=== PATIENT | male | born 1985 | race African-American/Black ===

== ENCOUNTER 2018-07-28 13:25 | Emergency (ER) | payer SELFPAY ==
[2018-07-28] MEDS ORDERED: ACETAMINOPHEN 325 MG TABLET PO ONE (13:41)
--- NOTE | 2018-07-28 13:46 | ER Document Report ---
HPI - HPI Pain Level: 4 Notes: Patient is a 32-year-old male who presents to the ED complaining of left knee pain status post injury 2 days ago. Patient states that he had been drinking and fell, but does not know if he twisted his knee or landed on it. Patient states that he has had surgery to his femur, knee, and tib/fib years ago and had equipment placed for fractures. Patient states that weightbearing makes his pain worse. He has not noticed any other swelling or bruising. He has not noticed any obvious giving way of his knee or locking. Denies drug allergies. Denies IV drug use. No other concerns or complaints. Denies any headache, fever, head injury, neck pain, changes in vision/speech/mentation/hearing, URI, sore throat, chest pain, palpitations, syncope, cough, shortness of breath, wheeze, dyspnea, abdominal pain, nausea/vomiting/diarrhea, urinary retention, dysuria, hematuria, back pain, loss of control of bowel or bladder, numbness/ tingling, saddle anesthesia, muscle paralysis/weakness, or rash. - ROS Systems Reviewed and Negative: Yes All other systems reviewed and negative Past Medical History - Social History Smoking Status: Former Smoker Family History: Reviewed & Not Pertinent Psychiatric Medical History: Reports: Hx Depression Past Surgical History: Reports: Hx Orthopedic Surgery - michael left femur, pins left ankle - Immunizations Hx Diphtheria, Pertussis, Tetanus Vaccination: Yes Vertical Provider Document - CONSTITUTIONAL Agree With Documented VS: Yes Notes: PHYSICAL EXAMINATION: GENERAL: Well-appearing, well-nourished and in no acute distress. LUNGS: Breath sounds clear to auscultation bilaterally and equal. No wheezes rales or rhonchi. HEART: Regular rate and rhythm without murmurs, rubs, gallops. Musculoskeletal: Lt knee: No obvious swelling, ecchymosis, effusion, or deformity. Surgical scar noted. FROM to passive/active. + tenderness to the medial knee, possible small effusion. Strength 5+/5. N/V intact distal. Ligamentous grossly stable, limited exam with larger leg size. Dee grossly negative. Patellar grind negative. No calf tenderness. Extremities: No cyanosis, clubbing, or edema b/l. Peripheral pulses 2+. Capillary refill less than 3 seconds. Milana neg b/l. NEUROLOGICAL: Normal speech, limping gait. Normal sensory, motor exams PSYCH: Normal mood, normal affect. SKIN: Warm, Dry, normal turgor, no rashes or lesions noted. - INFECTION CONTROL TRAVEL OUTSIDE OF THE [place] IN LAST 30 DAYS: No Course - Re-evaluation Re-evalutation: 07/28/18 15:45 Patient is an afebrile, well-hydrated, 32-year-old male who presents to the ED with left knee pain. Vitals are acceptable without any significant tachycardia , tachypnea, or hypoxia. PE is otherwise unremarkable for any neurovascular compromise, obvious tendon/ligament rupture, obvious fracture/dislocation, septic joint. X-ray was unremarkable for any acute pathology. Knee immobilizer and crutches were provided today. Tylenol given PO. Patient is nontoxic-appearing. Patient is able to ambulate and weight-bear although he is limping. No other labs or imaging warranted at this time based on H&P. Conservative measures otherwise for symptoms. Recheck with your PCM in 3-5 days. Schedule a consult with orthopedics. Return to the ED with any worsening /concerning symptoms otherwise as reviewed in discharge. Patient is in agreement. Delay in discharge/care due to prolonged >2hr post XR radiology read. Discharge - Discharge Clinical Impression: Left knee pain Qualifiers: Chronicity: acute Qualified Code(s): M25.562 - Pain in left knee Condition: Stable Disposition: HOME, SELF-CARE Additional Instructions: Rest, Ice, Compression, Elevation Use crutches/splint as directed Tylenol/ibuprofen as needed Light stretches daily Strength exercises as able Moist heat and massage may help F/u with your PCP in 3-5 days for a recheck Call orthopedics to schedule an appointment for further evaluation and management Return to the ED with any worsening symptoms and/or development of fever, headache, chest pain, palpitations, syncope, shortness of breath, trouble breathing, abdominal pain, n/v/d, muscle weakness/paralysis, numbness/tingling, swelling, redness, or other worsening symptoms that are concerning to you. Prescriptions: Naproxen 500 mg PO BID PRN #20 tablet PRN Reason: Forms: Elevated Blood Pressure, Return to Work Referrals: [facility] ([facility] [Provider Group] - Follow up in 3-5 days
[2018-07-28 13:53] VITALS: BP 167/103
--- NOTE | 2018-07-28 15:46 | RADIOLOGY REPORT (SQ) ---
EXAM DESCRIPTION: KNEE LEFT 4 VIEW COMPLETED DATE/TIME: 07/28/2018 2:04 pm REASON FOR STUDY: left knee pain s/p injury COMPARISON: None. EXAM PARAMETERS: NUMBER OF VIEWS: Four views. TECHNIQUE: AP, lateral and both oblique radiographic images acquired of the left knee. LIMITATIONS: None. FINDINGS: MINERALIZATION: Normal. BONES: No acute fracture or dislocation. Femoral and tibial intramedullary rods appear stable. . JOINTS: Moderate effusion. SOFT TISSUES: No significant soft tissue swelling. No radiopaque foreign body. OTHER: No other significant finding. IMPRESSION: Moderate effusion.No acute fracture or dislocation. Femoral and tibial intramedullary rods appear stable. TECHNICAL DOCUMENTATION: JOB ID: [id number] [id number] [employer]- All Rights Reserved Reading location - IP/workstation name: [email or web address]
== END 2018-07-28 15:56 | disposition home or self-care (01) ==
LOC: ER 13:25
DX: M25.562 Pain in left knee (principal); Z87.891 Personal history of nicotine dependence
CPT/HCPCS: 99284; 73564; L1830

== ENCOUNTER 2018-10-11 14:39 | Emergency (ER) | payer SELFPAY ==
[2018-10-11] MEDS ORDERED: LIDOCAINE 1% INJ-PF (10 MG/ML) 30 ML SDV INJ ONE (16:04)
--- NOTE | 2018-10-11 16:09 | ER Document Report ---
HPI - HPI Time Seen by Provider: 10/11/18 16:03 Pain Level: 4 Notes: Patient is a 32-year-old male with no significant past medical history who presents to the emergency department complaining of possible abscess to his right lower buttock times 2-3 days. Patient states the noticed hardness to the area with associated pain and purulence. He is still eating and drinking without difficulty otherwise. He is urinating normally and having normal bowel movements. No history of MRSA. Denies IV drug abuse. Denies any headache, fever, neck pain, URI, sore throat, chest pain, palpitations, syncope, cough, shortness of breath, wheeze, dyspnea, abdominal pain, nausea/vomiting/diarrhea, urinary retention, dysuria, hematuria, loss of control of bowel or bladder, numbness/tingling, saddle anesthesia, muscle paralysis/weakness. - ROS Systems Reviewed and Negative: Yes All other systems reviewed and negative Past Medical History - Social History Smoking Status: Never Smoker Family History: Reviewed & Not Pertinent - Past Medical History Cardiac Medical History: Reports: Hx Hypertension Renal/ Medical History: Denies: Hx Peritoneal Dialysis Psychiatric Medical History: Reports: Hx Depression Past Surgical History: Reports: Hx Orthopedic Surgery - michael left femur, pins left ankle - Immunizations Hx Diphtheria, Pertussis, Tetanus Vaccination: Yes Vertical Provider Document - CONSTITUTIONAL Agree With Documented VS: Yes Notes: PHYSICAL EXAMINATION: GENERAL: Well-appearing, well-nourished and in no acute distress. LUNGS: Breath sounds clear to auscultation bilaterally and equal. No wheezes rales or rhonchi. HEART: Regular rate and rhythm without murmurs, rubs, gallops. ABDOMEN: Soft, nontender, nondistended abdomen. No guarding, no rebound. No masses appreciated. Normal bowel sounds present. No CVA tenderness bilaterally. Buttocks: Rt inferior medial buttock has induration, purulence, tenderness, and warmth. No rectal tenderness or pain. The abscess does not involve the anus at this time. Musculoskeletal: FROM to passive/active. Strength 5+/5. Extremities: No cyanosis, clubbing, or edema b/l. Peripheral pulses 2+. Capillary refill less than 3 seconds. NEUROLOGICAL: Normal speech, normal gait. PSYCH: Normal mood, normal affect. SKIN: see above. - INFECTION CONTROL TRAVEL OUTSIDE OF THE [place] IN LAST 30 DAYS: No Course - Re-evaluation Re-evalutation: 10/11/18 17:09 Patient is an afebrile, well-hydrated, 32-year-old male who presents emergency department with an abscess to his left inferior buttock area. Vitals are acceptable without significant tachycardia, tachypnea, or hypoxia. PE is otherwise unremarkable. Patient is nontoxic-appearing and is tolerating p.o. without difficulty. Wound was thoroughly irrigated and cleansed. Incision and drainage was performed successfully without any complications and packing was placed. Patient tolerated procedure well. Wound culture was obtained. No further labs or imaging warranted at this time. Low suspicion for sepsis, meningitis, or other systemic emergent condition at this time. I will send him home with a prescription for Keflex and Bactrim. Recheck with your PCM/ED in 2- 3 days for wound repacking. Schedule an appointment with a general surgeon next week. Return to the ED with any other worsening/concerning symptoms. Patient is in agreement. - Vital Signs Vital signs: Temp Pulse Resp BP Pulse Ox 98.3 F 72 16 136/89 H 97 10/11/18 15:47 10/11/18 15:47 10/11/18 15:47 10/11/18 15:47 10/11/18 15:47 Procedures - Incision and Drainage Left Buttock Time completed: 17:05 Type: Simple Anesthetic type: 1% Lidocaine mL's of anesthetic: 6 Blade size: 11 I&D procedure: Iodoform packing placed, Sterile dressing applied, Other - Chlorhexidine/saline Incision Method: Incision made by scalpel Amount/type of drainage: Moderate purulent Discharge - Discharge Clinical Impression: Left buttock abscess Condition: Stable Disposition: HOME, SELF-CARE Instructions: Post Incision and Drainage, Cephalexin ([facility]), Trimethoprim-Sulfa ([facility]), Abscess ([facility]) Additional Instructions: Do not shower or bathe for 24 hours. After 24 hours you may shower but no submersion of the wound under water. Keep the original dressing on the wound for 24 hours unless the drainage soaks through. Change the dressing daily thereafter and use a small amount of triple antibiotic ointment over the open wound. See your PCM/ED in 2-3 days for recheck and continue direction for wound packing. Monitor for any signs of worsening pain or redness, streaks, and/or fever. Return to the ED if noticing any of the above symptoms or as needed. Take medications as directed. Prescriptions: Cephalexin Monohydrate [Keflex 500 mg Capsule] 500 mg PO TID #30 capsule Sulfamethoxazole/Trimethoprim [Bactrim Ds Tablet] 1 each PO BID #20 tablet Forms: Elevated Blood Pressure Referrals: BYRON BAKER MD [ACTIVE STAFF] - Follow up as needed
[2018-10-11 17:57] VITALS: BP 140/82
== END 2018-10-11 17:57 | disposition home or self-care (01) ==
LOC: ER 14:39
PROC: 0H98XZZ Drainage of Buttock Skin, External Approach (ICD-10-PCS; principal; 2018-10-11)
DX: L02.31 Cutaneous abscess of buttock (principal)
CPT/HCPCS: 99283; 87070; 87205; 87075; 87077; 87186; 10060; A6266; J3490

== ENCOUNTER 2019-02-06 10:02 | Emergency (ER) | payer SELFPAY ==
[2019-02-06 10:08] VITALS: BP 151/99
--- NOTE | 2019-02-06 10:24 | ER Document Report ---
ED Hand/Wrist Injury - General Chief Complaint: Hand Injury Stated Complaint: LEFT HAND PAIN Time Seen by Provider: 02/06/19 10:11 Primary Care Provider: [facility] ([facility] [Provider Group] - Follow up as needed Mode of Arrival: Ambulatory Information source: Patient Notes: 33-year-old male presented to ED for complaint of left hand and third finger pain. He states he fell when he was in half-way on 01/16/2019 and they did x-ray but never given the results because he was released from half-way before he got the results. He states the pain has continued and he needs to know what is going on with his hand. He states is painful to use his hand. We will re-x-ray the hand while he is here today. TRAVEL OUTSIDE OF THE [place] IN LAST 30 DAYS: No - HPI Injury to: Hand, Middle finger Onset: Other - 01/16/2019 Where: Other Timing: Still present - Nursing Home Quality of pain: Achy, Sharp Severity: Moderate Pain Level: 4 Context: Fall - Related Data Allergies/Adverse Reactions: lurasidone [From Latuda] Allergy (Verified 02/06/19 10:03) Past Medical History - General Information source: Patient - Social History Smoking Status: Never Smoker Frequency of alcohol use: Social Drug Abuse: None Lives with: Parents Family History: Reviewed & Not Pertinent Patient has suicidal ideation: No Patient has homicidal ideation: No - Past Medical History Cardiac Medical History: Reports: Hx Hypertension Pulmonary Medical History: Reports: None EENT Medical History: Reports: None Neurological Medical History: Reports: None Endocrine Medical History: Reports: None Renal/ Medical History: Reports: None Malignancy Medical History: Reports None GI Medical History: Reports: None Musculoskeletal Medical History: Reports Hx Musculoskeletal Deformity, Reports Hx Musculoskeletal Trauma Skin Medical History: Reports None Psychiatric Medical History: Reports: Hx Depression Traumatic Medical History: Reports: Hx Fractures Infectious Medical History: Reports: None Past Surgical History: Reports: Hx Orthopedic Surgery - michael left femur, pins left ankle - Immunizations Hx Diphtheria, Pertussis, Tetanus Vaccination: Yes Review of Systems - Review of Systems Constitutional: No symptoms reported EENT: No symptoms reported Cardiovascular: No symptoms reported Respiratory: No symptoms reported Gastrointestinal: No symptoms reported Genitourinary: No symptoms reported Male Genitourinary: No symptoms reported Musculoskeletal: Other - Pain swelling to the left hand and the left third MIP joint Skin: No symptoms reported Hematologic/Lymphatic: No symptoms reported Neurological/Psychological: No symptoms reported -: Yes All other systems reviewed and negative Physical Exam - Vital signs Vitals: Temp Pulse Resp BP Pulse Ox 98.5 F 73 14 151/99 H 97 02/06/19 10:06 02/06/19 10:06 02/06/19 10:02/06/19 10:02/06/19 10:06 Interpretation: Normal - General General appearance: Appears well, Alert - HEENT Head: Normocephalic, Atraumatic Eyes: Normal Pupils: PERRL - Respiratory Respiratory status: No respiratory distress Chest status: Nontender Breath sounds: Normal Chest palpation: Normal - Cardiovascular Rhythm: Regular Heart sounds: Normal auscultation Murmur: No - Abdominal Inspection: Normal Distension: No distension Bowel sounds: Normal Tenderness: Nontender Organomegaly: No organomegaly - Back Back: Normal, Nontender - Extremities General upper extremity: Normal color, Normal temperature General lower extremity: Normal inspection, Nontender, Normal color, Normal ROM, Normal temperature, Normal weight bearing. No: Milana's sign Hand: Tender, No evidence of human bite, No evidence of FB, Swelling - Left third MIP joint - Neurological Neuro grossly intact: Yes Cognition: Normal Orientation: AAOx4 Tati Coma Scale Eye Opening: Spontaneous Tati Coma Scale Verbal: Oriented Tati Coma Scale Motor: Obeys Commands [place] Coma Scale Total: 15 Speech: Normal Motor strength normal: LUE, RUE, LLE, RLE Sensory: Normal - Psychological Associated symptoms: Normal affect, Normal mood - Skin Skin Temperature: Warm Skin Moisture: Dry Skin Color: Normal Course - Re-evaluation Re-evalutation: 02/06/19 13:14 X-ray results discussed with patient and written report of x-ray given to patient. Patient was instructed to follow-up with primary doctor and orthopedics if he continued to have pain. Patient verbalized understanding and agreement with treatment plan. Patient refused Tylenol or Motrin while in the emergency room. Patient was given ice pack and instructed on use of elevation and ice. - Vital Signs Vital signs: Temp Pulse Resp BP Pulse Ox 98.5 F 73 14 151/99 H 97 02/06/19 10:06 02/06/19 10:06 02/06/19 10:02/06/19 10:06 02/06/19 10:06 - Diagnostic Test Radiology reviewed: Image reviewed, Reports reviewed Discharge - Discharge Clinical Impression: Contusion of left hand including fingers Qualifiers: Encounter type: initial encounter Qualified Code(s): S60.222A - Contusion of left hand, initial encounter Condition: Stable Disposition: HOME, SELF-CARE Instructions: Family Physicians / Practices Additional Instructions: CONTUSION: Your injury has resulted in a contusion -- a crushing of the deep tissues. No injury to important structures was detected during the physician's exam. Contusions vary in the amount of pain they cause, and in the length of time required for healing. Typically, the area will become bruised, and will remain painful to touch for two or three weeks. However, most patients are back to working and playing within a few days. After the initial period of rest and cold-packs, your symptoms (together with the doctor's recommendations) will determine how rapidly you can get back to full activity. Usually this means "do what feels okay, but don't do things that hurt." If re-examination was recommended, it's important to follow up as instructed. Call the doctor or return any time if pain increases, if swelling becomes severe, if you develop numbness or weakness in an injured extremity, or if any other alarming symptoms occur. USE OF TYLENOL (ACETAMINOPHEN): Acetaminophen may be taken for pain relief or fever control. It's much safer than aspirin, offering a wider range of "safe" dosages. It is safe during . Some brand names are Tylenol, Panadol, Datril, Anacin 3, Tempra, and Liquiprin. Acetaminophen can be repeated every four hours. The following are maximum recommended dosages: WEIGHT Dose Drops Elixir Chewable(80mg) (LBS.) drprs=droppers tsp=teaspoon 6 40 mg 0.4 ml (1/2) 6-11 80 mg 0.8 ml (full) tsp 1 tab 12-16 120 mg 1 1/2 drprs 3/4 tsp 1 1/2 tabs 17-23 160 mg 2 drprs 1 tsp 2 tabs 24-30 240 mg 3 drprs 1 1/2 tsp 3 tabs 30-35 320 mg 2 tsp 4 tabs 36-41 360 mg 2 1/4 tsp 4 1/2 tabs 42-47 400 mg 2 1/2 tsp 5 tabs 48-53 480 mg 3 tsp 6 tabs 54-59 520 mg 3 1/4 tsp 6 1/2 tabs 60-64 560 mg 3 1/2 tsp 7 tabs 65-70 600 mg 3 3/4 tsp 7 1/2 tabs 71-76 640 mg 4 tsp 8 tabs 77-82 720 mg 4 1/2 tsp 9 tabs 83-88 800 mg 5 tsp 10 tabs >89 pounds or adults 650 mg to 900 mg Acetaminophen can be repeated every four hours. Maximum dose not to exceed 4000 mg a day. These maximum recommended dosages are slightly higher than the dosages written on the product container, but these dosages are very safe and below the toxic dosage for acetaminophen. Ibuprofen Ibuprofen is an excellent, safe drug for pain control. In addition, it has potent antiinflammatory effects which are beneficial, especially in the treatment of injuries, arthritis, or tendonitis. It's best to take ibuprofen with food. Persons with ulcer disease or allergy to aspirin should notify their physician of this before taking ibuprofen. Take the medication exactly as prescribed. Don't take additional doses unless instructed to do so by your doctor. If you develop wheezing, shortness of breath, hives, faintness, stomach pain, vomiting, or dark black stools, return for re-evaluation at once. Ice & Elevation Apply ice packs frequently against the painful area. Many different schedu les are recommended, such as "20 minutes on, 20 minutes off" or "one hour ice, two hours rest." If you need to work, you may need to go longer between ice treatments. You should plan to have the area ice packed AT LEAST one-fourth of the time. The ice should be applied over the wrap, tape, or splint, or over a layer of cloth -- not directly against the skin. Some ice bags have a built-in cloth and can be put directly on the skin. Your injured part should be elevated as much as possible over the next 48 hours. Try to keep the injury above the level of the heart. Avoid use of the i njured area. Elevation and rest will decrease the swelling. FOLLOW-UP CARE: If you have been referred to a physician for follow-up care, call the physicians office for an appointment as you were instructed or within the next two days. If you experience worsening or a significant change in your symptoms, notify the physician immediately or return to the Emergency Department at any ti me for re-evaluation. Forms: Elevated Blood Pressure, Return to Work Referrals: [facility] ([facility] [Provider Group] - Follow up as needed
--- NOTE | 2019-02-06 10:39 | RADIOLOGY REPORT (SQ) ---
EXAM DESCRIPTION: HAND LEFT 3 VIEWS COMPLETED DATE/TIME: 02/06/2019 10:26 am REASON FOR STUDY: fall pain COMPARISON: None. EXAM PARAMETERS: NUMBER OF VIEWS: Three views. TECHNIQUE: AP, lateral and oblique radiographic images acquired of the left hand. LIMITATIONS: None. FINDINGS: MINERALIZATION: Normal. BONES: No acute fracture or dislocation. No worrisome bone lesions. JOINTS: No effusions. SOFT TISSUES: No soft tissue swelling. No foreign body. OTHER: No other significant finding. IMPRESSION: NEGATIVE STUDY OF THE LEFT HAND. NO RADIOGRAPHIC EVIDENCE OF ACUTE INJURY. TECHNICAL DOCUMENTATION: JOB ID: [id number] [employer]- All Rights Reserved Reading location - IP/workstation name: [email or web address]
== END 2019-02-06 10:52 | disposition home or self-care (01) ==
LOC: ER 10:02
DX: S60.222A Contusion of left hand, initial encounter (principal); S60.00XA Contusion of unspecified finger without damage to nail, initial encounter; M79.642 Pain in left hand; M79.645 Pain in left finger(s); M25.442 Effusion, left hand; W19.XXXA Unspecified fall, initial encounter; Y92.149 Unspecified place in prison as the place of occurrence of the external cause; I10 Essential (primary) hypertension; Z88.8 Allergy status to other drugs, medicaments and biological substances
CPT/HCPCS: 99283

== ENCOUNTER 2019-10-02 12:15 | Emergency (ER) | payer SELFPAY ==
--- NOTE | 2019-10-02 13:53 | ER Document Report ---
HPI - HPI Patient complains to provider of: Penis pain Time Seen by Provider: 10/02/19 13:51 Onset: Other - 2 weeks Onset/Duration: Persistent Quality of pain: Achy Context: Patient presents complaining of a two-week history of penis and urethra tenderness. Patient complains of pain with intercourse. Patient denies any penile discharge. Patient denies any scrotal tenderness abdominal pain or back pain. Associated Symptoms: denies: Fever, Nausea, Vomiting Exacerbated by: Other - Sexual intercourse Relieved by: Denies Similar symptoms previously: No Recently seen / treated by doctor: No - ROS ROS below otherwise negative: Yes Systems Reviewed and Negative: Yes All other systems reviewed and negative - CONSTITUTIONAL Constitutional: DENIES: Fever - GASTROINTESTINAL Gastrointestinal: DENIES: Nausea, Patient vomiting - URINARY Urinary: DENIES: Dysuria, Urgency, Frequency Notes: Pain to the penis and urethra - DERM Skin Color: Normal Skin Problems: None Past Medical History - General Information source: Patient - Social History Smoking Status: Never Smoker Frequency of alcohol use: None Drug Abuse: None Occupation: None Family History: Reviewed & Not Pertinent - Past Medical History Cardiac Medical History: Reports: Hx Hypertension Renal/ Medical History: Denies: Hx Peritoneal Dialysis Musculoskeletal Medical History: Reports Hx Musculoskeletal Deformity, Reports Hx Musculoskeletal Trauma Psychiatric Medical History: Reports: Hx Depression Traumatic Medical History: Reports: Hx Fractures Past Surgical History: Reports: Hx Orthopedic Surgery - michael left femur, pins left ankle - Immunizations Hx Diphtheria, Pertussis, Tetanus Vaccination: Yes Vertical Provider Document - CONSTITUTIONAL Agree With Documented VS: Yes Exam Limitations: No Limitations General Appearance: WD/WN, No Apparent Distress - INFECTION CONTROL TRAVEL OUTSIDE OF THE [place] IN LAST 30 DAYS: No - HEENT HEENT: Atraumatic, Normocephalic - NECK Neck: Normal Inspection, Supple. negative: Lymphadenopathy-Left, Lymphadenopathy-Right - RESPIRATORY Respiratory: Breath Sounds Normal, No Respiratory Distress - CARDIOVASCULAR Cardiovascular: Regular Rate, Regular Rhythm - GI/ABDOMEN Gastrointestinal: Abdomen Soft, Abdomen Non-Tender - REPRODUCTIVE Male Genitalia: Normal Inspection Notes: No inguinal lymphadenopathy, no skin lesions or rashes. No scrotal tenderness. Normal cremasteric reflex. No drainage or discharge noted from penis. Patient does have tenderness to urethra. Indira PCT is standby. - BACK Back: Normal Inspection. negative: CVA Tenderness-Right, CVA Tenderness-Left - MUSCULOSKELETAL/EXTREMETIES Musculoskeletal/Extremeties: ENRIQUE MORRISON - NEURO Level of Consciousness: Awake, Alert, Appropriate Motor/Sensory: No Motor Deficit - DERM Integumentary: Warm, Dry Course - Re-evaluation Re-evalutation: 10/02/19 15:16 Patient with tenderness to urethra, no obvious penile discharge or drainage. No scrotal tenderness. Will treat for likely urethritis at this time. Good return precautions discussed. Patient encouraged to follow-up with urology for any persistent pain or problems. - Vital Signs Vital signs: Temp Pulse Resp BP Pulse Ox 98.7 F 64 18 158/99 H 98 10/02/19 13:28 10/02/19 13:28 10/02/19 13:28 10/02/19 13:28 10/02/19 13:28 - Laboratory Laboratory results interpreted by me: 10/02/19 15:15 Labs- Entire Visit 10/02/19 14:02 Urine Color YELLOW Urine Appearance CLEAR Urine pH 6.0 Ur Specific [place] 1.024 Urine Protein NEGATIVE Urine Glucose (UA) NEGATIVE Urine Ketones NEGATIVE Urine Blood NEGATIVE Urine Nitrite NEGATIVE Urine Bilirubin NEGATIVE Urine Urobilinogen 4.0 H Ur Leukocyte Esterase NEGATIVE Urine WBC (Auto) 1 Urine RBC (Auto) 1 Squamous Epi Cells Auto 4 Urine Mucus (Auto) RARE Urine Ascorbic Acid 20 H 10/02/19 15:16 Labs- Entire Visit 10/02/19 14:02 Urine Color YELLOW Urine Appearance CLEAR Urine pH 6.0 Ur Specific [place] 1.024 Urine Protein NEGATIVE Urine Glucose (UA) NEGATIVE Urine Ketones NEGATIVE Urine Blood NEGATIVE Urine Nitrite NEGATIVE Urine Bilirubin NEGATIVE Urine Urobilinogen 4.0 H Ur Leukocyte Esterase NEGATIVE Urine WBC (Auto) 1 Urine RBC (Auto) 1 Squamous Epi Cells Auto 4 Urine Mucus (Auto) RARE Urine Ascorbic Acid 20 H Discharge - Discharge Clinical Impression: Urethritis Condition: Stable Disposition: HOME, SELF-CARE Instructions: Azithromycin ([facility]), Rocephin ([facility]), Urethritis ([facility]) Additional Instructions: Return immediately for any new or worsening symptoms Followup with your primary care provider, call tomorrow to make a followup appointment Culture is pending, we will call if you need any different treatment. Follow-up with urology for any persistent pain or problems Referrals: [facility] [Provider Group] - Follow up as needed
[2019-10-02 15:00] LABS: APPEARANCE,URINE CLEAR; BILIRUBIN,URINE NEGATIVE (NEGATIVE); COLOR,URINE YELLOW; GLUCOSE, URINE NEGATIVE (NEGATIVE); KETONES,URINE NEGATIVE (NEGATIVE); LEUKOCYTE ESTERASE,URINE NEGATIVE (NEGATIVE); NITRITE,URINE NEGATIVE (NEGATIVE); PROTEIN,URINE NEGATIVE (NEGATIVE); URINE SPECIFIC GRAVITY 1.024
[2019-10-02] MEDS ORDERED: LIDOCAINE 1% INJ (10 MG/ML) 10 ML MDV INJ ONE (15:14)
[2019-10-02] MEDS ORDERED: CEFTRIAXONE INJ 250 MG VIAL IM ONE (15:14)
[2019-10-02] MEDS ORDERED: AZITHROMYCIN 250 MG TABLET PO ONE (15:15)
[2019-10-02 16:08] VITALS: BP 152/90
[2019-10-02 16:25] LABS: CHLAM PCR NOT DETECTED (NOT DETECT)
== END 2019-10-02 16:09 | disposition home or self-care (01) ==
LOC: ER 12:15
DX: N34.2 Other urethritis (principal); N48.89 Other specified disorders of penis; I10 Essential (primary) hypertension
CPT/HCPCS: 99283; 96372; 81001; 87491; 87591; J0696